=== PATIENT | male | born 1945 | race American Indian/Alaskan Native ===

== ENCOUNTER 2022-01-18 15:06 | Inpatient (IN) | payer MEDICARE ==
--- NOTE | 2022-01-18 15:45 | Cat Scan Report ---
CT HEAD WITHOUT CONTRAST INDICATION / CLINICAL INFORMATION: CODE STROKE LNW 1430, AMS, [id number]. TECHNIQUE: All CT scans at this location are performed using CT dose reduction for ALARA by means of automated exposure control. COMPARISON: None available. FINDINGS: CEREBRAL/CEREBELLAR PARENCHYMA: Large chronic left cerebral hemisphere infarct with associated enceph alomalacia. Smaller chronic right posterior frontal and anterior parietal lobe infarcts. Bilateral ce rebral peduncle Wallerian degeneration. Small chronic left occipital lobe infarct. No evidence for an acute/subacute territorial infarct. Small chronic right cerebellar lacunar type infarct. Mild perive ntricular chronic microangiopathy. Mild generalized cerebral and cerebellar atrophy. HEMORRHAGE: No acute intra-axial hemorrhage or extra-axial fluid collection. MASS: No mass or mass effect. VENTRICULAR SYSTEM: Normal in size and morphology for the patient's age. ORBITS: Normal as visualized. SOFT TISSUES/SKULL: No scalp hematoma or skull fracture. PARANASAL SINUSES/MASTOID AIR CELLS: Left maxillary sinus mucous retention cyst. Torus palatinus. IMPRESSION: 1. No acute intracranial abnormality. 2. Multifocal chronic ischemic changes including a large chronic left MCA distribution infarct with a ssociated encephalomalacia, as detailed above. CODE STROKE Time of Communication (MAGISTRATE/CDT): 14:38 Licensed Practitioner Receiving Report: Dr. Solis Signer Name: Harry Mendez MD Signed: 01/18/2022 3:40 PM Workstation Name: [id number]
--- NOTE | 2022-01-18 16:11 | Cat Scan Report ---
CT angio neck INDICATION / CLINICAL INFORMATION: 76 years Male; CODE STROKE. LNW 1430 [facility] [id number] 100ML OF OMNIPAQUE 350 GIVEN. TECHNIQUE: Thin cut axial images obtained through the head during IV bolus contrast administration. S agittal, coronal, and 3 plane MIP reconstructions performed by the technologist. NASCET type criteria used evaluate stenoses. All CT scans at this location are performed using CT dose reduction for ALAR A by means of automated exposure control. COMPARISON: None available. FINDINGS: CAROTID ARTERIES: There is irregular atherosclerotic plaque involving proximal left ICA with approxim ately 20% stenosis by NASCET criteria. The more distal left cervical ICA is unremarkable. VERTEBRAL ARTERIES: There is also mild calcified plaque involving the proximal right ICA without sign ificant stenosis by NASCET criteria. ARCH: There is calcification at the origins of the vertebral arteries with mild to moderate stenosis on the right and mild stenosis on the left. There is no further significant narrowing involving cervi reggie vertebral arteries. ADDITIONAL FINDINGS: There is mild calcification involving aortic arch. There is no significant narro wing of the origins of the arch vessels. IMPRESSION: There is irregular atherosclerotic plaque involving proximal left ICA with mild, 20% stenosis by NASC ET criteria. There is mild plaque involving proximal right ICA without significant stenosis. There is moderate right and mild left narrowing of the origins of the vertebral arteries as described . Signer Name: Ever Yip MD Signed: 01/18/2022 4:07 PM Workstation Name: [id number]
--- NOTE | 2022-01-18 16:15 | XRay Report ---
CHEST 1 VIEW 01/18/2022 3:48 PM INDICATION / CLINICAL INFORMATION: cva. COMPARISON: None available. FINDINGS: SUPPORT DEVICES: None. HEART / MEDIASTINUM: There is borderline to mild cardiomegaly. The aorta is ectatic but well defined. LUNGS / PLEURA: No significant pulmonary or pleural abnormality. No pneumothorax. ADDITIONAL FINDINGS: No significant additional findings. IMPRESSION: 1. Cardiomegaly. Ectatic aorta. Lungs clear. Signer Name: Oneal Eller Jr, MD Signed: 01/18/2022 4:10 PM Workstation Name: [id number]
[2022-01-18] MEDS ORDERED: levETIRAcetam 1000 MG/NS 0.75% 1,000 MG/100 ML BAG IV ONE (16:35)
--- NOTE | 2022-01-18 16:43 | History and Physical Report ---
History of Present Illness Chief complaint: He cannot talk History of present illness: 76 YO Male with Vascular Dementia, Cerebral Atherosclerosis, CVA with Hemiparesis, Dysphagia presents to ED for evaluation. Patient is dysarthric and nonverbal at time of evaluation and is unable to write history. Patient here provided by daughter and was at bedside during exam and interview. As per family the patient was found to have new onset slurred speech and worsening right-sided weakness today around 1430 hrs. EMS was notified and upon arrival the patient was found to have a focal neurologic deficit. A code stroke was called and the patient was transported to [facility] for further care and evaluation of the aforementioned symptoms. The patient was seen and evaluated in the emergency department. Lab and imaging studies reviewed. Patient found to have clinical symptoms consistent with CVA complicated by new onset seizure activity which was witnessed in the emergency department. CT scan of the brain revealed large left MCA stroke. Patient admitted to medical floor and initiated on CVA protocol as well as antiepileptic therapy. No further history is obtainable. Patient family denies fever, chills, chest pain, palpitation, productive cough, skin rash and recent contact, or known exposure to COVID-19. No prior admission for review. No medication listed at time of admission for reconciliation. Adva nced care planning conducted in ED. Past History Past Medical History: stroke, other (See HPI) Past Surgical History: Other (PEG tube placement) Social history: , lives with family Family history: hypertension Medications and Allergies Allergies Allergy/AdvReac Type Severity Reaction Status Date / Time No Known Allergies Allergy Verified 01/18/22 16:45 Active Meds: Active Medications Levetiracetam (Keppra 1,000 Mg/Ns 0.75% 100ml) 1,000 mg in 100 mls @ 400 mls/hr IV ONCE ONE Stop: 01/18/22 16:49 Review of Systems ROS unobtainable: due to mental status Exam - Constitutional Vitals: Temp Pulse Resp BP Pulse Ox 98.2 F 88 18 122/78 95 01/18/22 15:06 01/18/22 15:06 01/18/22 15:06 01/18/22 15:06 01/18/22 15:06 General appearance: Present: mild distress - EENT Eyes: Present: PERRL ENT: hearing intact, clear oral mucosa - Neck Neck: Present: supple, normal ROM - Respiratory Respiratory effort: normal Respiratory: bilateral: diminished - Cardiovascular Heart Sounds: Present: S1 & S2. Absent: rub, click - Extremities Extremities: pulses symmetrical, No edema Peripheral Pulses: within normal limits - Abdominal General gastrointestinal: Present: soft, non-tender, non-distended, normal bowel sounds Male genitourinary: Present: normal - Integumentary Integumentary: Present: clear, dry - Musculoskeletal Musculoskeletal: right sided weakness - Psychiatric Psychiatric: no appropriate mood/affect, no intact judgment & insight, no memory intact - Neurologic Neurologic: no CNII-XII intact, focal deficits, no moves all extremities, no gait normal Results - Labs CBC & Chem 7: 01/18/22 16:23 01/18/22 16:23 Assessment and Plan - Patient Problems (1) CVA (cerebral vascular accident) Status: Acute Qualifiers: Laterality of affected vessel: left Plan to address problem: CT scan head, neuro check, seizure precaution, aspiration precaution, fall precautions, physical therapy consulted, Occupational Therapy consulted, speech therapy consult, lipid panel, statin therapy, antiplatelet therapy, carotid Doppler, echocardiogram (2) Hemiparesis of right dominant side due to cerebral infarction Status: Acute Plan to address problem: Physical therapy consulted. (3) Dysarthria due to acute cerebellar cerebrovascular accident (CVA) Status: Acute Plan to address problem: Speech therapy consulted (4) Dysphagia as late effect of stroke Status: Acute Plan to address problem: Speech therapy consulted, patient has PEG tube in place. (5) Seizure disorder Status: Acute Plan to address problem: Antiepileptic therapy initiated in the emergency department, seizure pre cautions. (6) Vascular dementia Status: Acute Qualifiers: Dementia behavioral disturbance: without behavioral disturbance Qualified Code(s): F01.50 - Vascular dementia without behavioral disturbance Plan to address problem: Verbal prompt, verbal redirection, benzodiazepine therapy as clinically indicated. (7) Cerebral atherosclerosis Status: Acute (8) DVT prophylaxis Status: Acute Plan to address problem: SCDs bilateral lower extremities while in bed (9) Advance care planning Status: Acute Plan to address problem: Disease education done, care plan discussed, diagnosis discussed, prognosis discussed, patient is full code, patient family acknowledged understanding and agreement with care plan, +30 minutes. (10) Preventative health care Status: Acute Plan to address problem: Patient family counseled regarding home safety, risk factor reduction, outpatient follow-up with primary care physician for all age and risk factor appropriate screening test. +30 minutes.
[2022-01-18] MEDS ORDERED: oxyCODONE /ACETAMINOPHEN 5-325MG TAB PO PRN (16:44)
[2022-01-18] MEDS ORDERED: ACETAMINOPHEN 325 MG TAB PO PRN (16:44)
[2022-01-18] MEDS ORDERED: ONDANSETRON 4 MG/2 ML INJ IV PRN (16:44)
[2022-01-18] MEDS ORDERED: PROMETHAZINE 25 MG RECT SUPP PR PRN (16:44)
[2022-01-18] MEDS ORDERED: MAGNESIUM HYDROXIDE (MOM) ORAL LIQD UDC PO PRN (16:44)
[2022-01-18] MEDS ORDERED: MORPHINE 4 MG/1 ML INJ IV PRN (16:44)
[2022-01-18] MEDS ORDERED: METOCLOPRAMIDE 10 MG TAB PO PRN (16:44)
[2022-01-18] MEDS ORDERED: ALBUTEROL 2.5 MG/3 ML NEBU IH PRN (16:44)
--- NOTE | 2022-01-18 16:49 | Cat Scan Report ---
CT angio head INDICATION / CLINICAL INFORMATION: 76 years Male; CODE STROKE. LNW 1430 [facility] [id number] 100ML OF OMNIPAQUE 350 GIVEN. TECHNIQUE: Thin cut axial images obtained through the head during IV bolus contrast administration. S agittal, coronal, and 3 plane MIP reconstructions performed by the technologist. NASCET type criteria used evaluate stenoses. Automated exposure control utilized for radiation reduction purposes. . COMPARISON: None available. FINDINGS: INTERNAL CAROTID ARTERIES: No significant narrowing appreciated. Atherosclerotic disease noted. VERTEBROBASILAR SYSTEM: Focal area of moderate narrowing is seen in the distal right vertebral artery . Areas of minimal narrowing are seen in the proximal and mid basilar artery. DISTAL BRANCHES: Distal branches of the anterior, middle, and posterior cerebral arteries are fairly symmetric in appearance and number. Focal areas of akhv-qj-jmszxexx narrowing are seen in the anterior cerebral artery branches where the vessels pass around the genu of the corpus callosum. Some of these areas have the appearance of vasc ulitis/arteritis, as there are areas of mild narrowing and dilatation present. Areas of mild narrowing dilatation are seen in the MCA branches as well. Focal areas of llch-fo-ncyvqzak narrowing are seen in the P2 regions of both posterior cerebral arter ies. ANEURYSM: None identified. ADDITIONAL FINDINGS: Remainder of the surrounding soft tissues are grossly normal. IMPRESSION: 1. No signs of large vessel occlusion. Areas of narrowing as described above. Vasculitis/arteritis mi ght be a consideration, although certainly there is evidence of atherosclerotic disease.. Signer Name: Braulio aZman MD, III Signed: 01/18/2022 4:45 PM Workstation Name: [id number]
[2022-01-18 16:51] LABS: Alanine Aminotransferase 33 units/L (7-56); Albumin 4.5 g/dL (3.9-5); Blood Urea Nitrogen 15 mg/dL (9-20); Calcium 9.8 mg/dL (8.4-10.2); Hemolysis Index 23
--- NOTE | 2022-01-18 17:00 | Emergency Department Report ---
ED General Adult HPI - General Chief complaint: Neuro Symptoms/Deficit Stated complaint: AMS/STROKE Time Seen by Provider: 01/18/22 15:10 Source: EMS Mode of arrival: Stretcher Limitations: Altered Mental Status, Physical Limitation - History of Present Illness Initial comments: Patient presents to the emergency department via EMS for concern of a stroke. Patient has a recent history of CVA in June of this year that resulted in right-sided deficits as well as placement of a feeding tube. Per EMS the call was made by the patient's for concern of new onset slurred speech and increased weakness on the left side. Patient is nonverbal thus unable to help with exam. Symptoms started a proximal around 2:15 PM. Per EMS the patient had a new onset seizure as well at home thus patient was not a tPA candidate -: Sudden Severity scale (0 -10): 0 Consistency: constant Improves with: none Worsens with: none Associated Symptoms: denies other symptoms Treatments Prior to Arrival: none - Related Data Allergies Allergy/AdvReac Type Severity Reaction Status Date / Time No Known Allergies Allergy Verified 01/18/22 16:45 ED Review of Systems ROS: Stated complaint: AMS/STROKE Other details as noted in HPI Comment: Unobtainable due to pts medical conditions ED Physical Exam - General Limitations: Altered Mental Status, Physical Limitation General appearance: alert, in no apparent distress - Head Head exam: Present: atraumatic, normocephalic - Eye Eye exam: Present: normal appearance, PERRL, EOMI - ENT ENT exam: Present: mucous membranes moist - Neck Neck exam: Present: normal inspection - Respiratory Respiratory exam: Present: normal lung sounds bilaterally. Absent: respiratory distress - Cardiovascular Cardiovascular Exam: Present: regular rate, normal rhythm. Absent: systolic murmur, diastolic murmur, rubs, gallop - GI/Abdominal GI/Abdominal exam: Present: soft, normal bowel sounds, other (PEG tube present). Absent: distended, tenderness - Rectal Rectal exam: Present: deferred - Extremities Exam Extremities exam: Present: normal inspection - Back Exam Back exam: Present: normal inspection - Neurological Exam Neurological exam: Present: alert, other (Patient has residual right-sided deficits from prior stroke. Patient on exam is not able to move left upper strongly against gravity.) - Psychiatric Psychiatric exam: Present: normal affect, normal mood - Skin Skin exam: Present: warm, dry, intact, normal color. Absent: rash ED Course Vital Signs 01/18/22 01/18/22 01/18/22 15:06 16:08 16:15 Temperature 98.2 F Pulse Rate 88 79 Respiratory 18 25 H Rate Blood Pressure Blood Pressure 122/78 [Left] O2 Sat by Pulse 95 95 96 Oximetry 01/18/22 01/18/22 01/18/22 16:31 16:45 17:00 Temperature Pulse Rate 78 76 82 Respiratory 27 H 23 17 Rate Blood Pressure Blood Pressure [Left] O2 Sat by Pulse 94 94 93 Oximetry 01/18/22 01/18/22 01/18/22 17:15 17:30 17:45 Temperature Pulse Rate 71 66 64 Respiratory 24 19 21 Rate Blood Pressure 138/81 142/79 Blood Pressure [Left] O2 Sat by Pulse 94 94 95 Oximetry 01/18/22 18:00 Temperature Pulse Rate 67 Respiratory 20 Rate Blood Pressure 143/88 Blood Pressure [Left] O2 Sat by Pulse 97 Oximetry ED Medical Decision Making - Lab Data Result diagrams: 01/18/22 16:23 01/18/22 16:23 Lab Results 01/18/22 01/18/22 01/18/22 Range/Units 16:23 16:23 16:23 WBC 5.6 (4.5-11.0) K/mm3 RBC 4.21 (3.65-5.03) M/mm3 Hgb 12.6 (11.8-15.2) gm/dl Hct 37.3 (35.5-45.6) % MCV 89 (84-94) fl MCH 30 (28-32) pg MCHC 34 (32-34) % RDW 14.9 (13.2-15.2) % Plt Count 263 (140-440) K/mm3 PT 15.1 H (12.2-14.9) Sec. INR 1.04 (0.87-1.13) APTT 31.9 (24.2-36.6) Sec. Thrombin Time 18.3 (15.1-19.6) Sec. Sodium (137-145) mmol/L Potassium (3.6-5.0) mmol/L Chloride (98-107) mmol/L Carbon Dioxide (22-30) mmol/L Anion Gap mmol/L BUN (9-20) mg/dL Creatinine (0.8-1.3) mg/dL Estimated GFR ml/min BUN/Creatinine Ratio % Glucose (75-100) mg/dL Calcium (8.4-10.2) mg/dL Total Bilirubin (0.1-1.2) mg/dL AST (5-40) units/L ALT (7-56) units/L Alkaline Phosphatase (35-129) units/L Total Creatine Kinase 141 (55-170) units/L CK-MB (CK-2) 3.5 (0.0-4.0) ng/mL CK-MB (CK-2) Rel Index 2.4 (0-4) Troponin T 0.085 H (0.00-0.029) ng/mL Total Protein (6.3-8.2) g/dL Albumin (3.9-5) g/dL Albumin/Globulin Ratio % Triglycerides 98 (2-149) mg/dL Cholesterol 121 (50-199) mg/dL LDL Cholesterol Direct 57 (50-130) mg/dL HDL Cholesterol 50 (40-59) mg/dL Cholesterol/HDL Ratio 2.42 % // Range/Units 16:23 WBC (4.5-11.0) K/mm3 RBC (3.65-5.03) M/mm3 Hgb (11.8-15.2) gm/dl Hct (35.5-45.6) % MCV (84-94) fl MCH (28-32) pg MCHC (32-34) % RDW (13.2-15.2) % Plt Count (140-440) K/mm3 PT (12.2-14.9) Sec. INR (0.87-1.13) APTT (24.2-36.6) Sec. Thrombin Time (15.1-19.6) Sec. Sodium 139 (137-145) mmol/L Potassium 3.6 (3.6-5.0) mmol/L Chloride 100.9 (98-107) mmol/L Carbon Dioxide 27 (22-30) mmol/L Anion Gap 15 mmol/L BUN 15 (9-20) mg/dL Creatinine 0.6 L (0.8-1.3) mg/dL Estimated GFR > 60 ml/min BUN/Creatinine Ratio 25 % Glucose 135 H (75-100) mg/dL Calcium 9.8 (8.4-10.2) mg/dL Total Bilirubin 0.50 (0.1-1.2) mg/dL AST 27 (5-40) units/L ALT 33 (7-56) units/L Alkaline Phosphatase 171 H (35-129) units/L Total Creatine Kinase (55-170) units/L CK-MB (CK-2) (0.0-4.0) ng/mL CK-MB (CK-2) Rel Index (0-4) Troponin T (0.00-0.029) ng/mL Total Protein 8.3 H (6.3-8.2) g/dL Albumin 4.5 (3.9-5) g/dL Albumin/Globulin Ratio 1.2 % Triglycerides (2-149) mg/dL Cholesterol (50-199) mg/dL LDL Cholesterol Direct (50-130) mg/dL HDL Cholesterol (40-59) mg/dL Cholesterol/HDL Ratio % - EKG Data -: EKG Interpreted by Or EKG shows normal: sinus rhythm Rate: normal - EKG Data 01/18/22 18:30 With PVCs - Radiology Data Radiology results: report reviewed - Medical Decision Making Detailed discussions were had with the patient's and daughter Patient had seizure-like activity in the ED and thus was started on Keppra. Critical care attestation.: If time is entered above; I have spent that time in minutes in the direct care of this critically ill patient, excluding procedure time. ED Disposition Clinical Impression: Seizure-like activity CVA (cerebral vascular accident) Qualifiers: Laterality of affected vessel: left Disposition: 09 ADMITTED INPATIENT Is pt being admited?: Yes Does the pt Need Aspirin: No Condition: Stable
[2022-01-18 17:01] LABS: Creatine Kinase MB 3.5 ng/mL (0.0-4.0)
[2022-01-18 17:17] LABS: BUN/Creatinine Ratio 25
[2022-01-18 17:20] LABS: Hematocrit 37.3 % (35.5-45.6); Hemoglobin 12.6 gm/dl (11.8-15.2); Mean Corpuscular HGB Conc 34 % (32-34); Mean Corpuscular Volume 89 fl (84-94); Platelet Count 263 K/mm3 (140-440); Red Blood Count 4.21 M/mm3 (3.65-5.03); Red Cell Distribution Width 14.9 % (13.2-15.2)
[2022-01-18 17:40] LABS: Chol/HDL Ratio 2.42 %
[2022-01-18 17:57] LABS: INR 1.04 (0.87-1.13)
[2022-01-18 17:59] LABS: Partial Thromboplastin Time 31.9 Sec. (24.2-36.6); Thrombin Time 18.3 Sec. (15.1-19.6)
[2022-01-18 18:34] LABS: Basophils % (Manual) 0 % (0.0-1.8); Eosinophils % (Manual) 0 % (0.0-4.3); Platelet Estimate Consistent w Auto; Total Cells Counted 100
[2022-01-18] MEDS: levETIRAcetam 500 MG/5 ML ORAL LIQD PO SCH (22:19)
[2022-01-19 06:18] LABS: Color,Urine Yellow (Yellow)
[2022-01-19 06:19] LABS: Amphetamine Screen,Urine Negative; Benzodiazepines Screen,Urine Negative; Bilirubin,Urine Negative (Negative); Blood,Urine Negative (Negative); Cannabinoid Screen,Urine Negative; Cocaine Screen,Urine Negative; Methadone Screen,Urine Negative; Opiate Screen,Urine Negative; Urobilinogen,Urine 0.2 mg/dL (<2.0)
[2022-01-19] MEDS: ASPIRIN 325 MG TAB PO SCH (09:40)
[2022-01-19] MEDS: levETIRAcetam 500 MG/5 ML ORAL LIQD PO SCH ×2 (09:40→21:51)
--- NOTE | 2022-01-19 12:47 | Discharge Summary ---
Providers - Providers Date of Admission: 01/18/22 16:44 Date of discharge: 01/19/22 Attending physician: ADRI AUGUSTIN 01/18/22 16:44 Consult to Case Management [CONS] Routine Services Needed at Discharge: Other Notified:: in AM Additional Physician Instructions: Please send out for SNF Placement Occupational Therapy Evaluate and Treat [CONS] Routine Comment: Reason For Exam: Neuro deficits Physical Therapy Evaluation and Treat [CONS] Routine Comment: Reason For Exam: Neuro deficits 01/18/22 16:46 Speech Therapy Evaluation and Treat [CONS] Routine Reason For Exam: swallow eval 01/19/22 12:46 Consult to Physician [CONS] Routine Reason For Exam: acute CVA Consulting Provider: LOREN FISHER Physician Instructions: Comment: Primary care physician: GELACIO JOYA Hospitalization Condition: Stable Exam - Constitutional Vitals: Temp Pulse Resp BP Pulse Ox 98.4 F 80 17 111/71 98 01/19/22 04:41 01/19/22 04:41 01/19/22 04:41 01/19/22 04:41 01/19/22 08:57 Plan Follow up with: GELACIO JOAY MD [Primary Care Provider] - 7 Days
[2022-01-19] MEDS ORDERED: NON-FORMULARY EACH (Insulin Detemir [Levemir Flextouch] 100 UNIT/ML Insuln.Pen) SQ SCH (18:00)
[2022-01-19] MEDS ORDERED: NON-FORMULARY EACH (Apixaban 5 MG Tablet) PO SCH (18:00)
[2022-01-19] MEDS ORDERED: SIMPLE SYRUP 15 ML FEEDTUBE PRN ×2 (18:05)
[2022-01-19] MEDS ORDERED: LIPASE 10,500/PROTEASE 25,000/AMYLASE 43,750 (UNITS) DR CAP FEEDTUBE PRN (18:05)
[2022-01-19] MEDS ORDERED: SODIUM BICARBONATE 325 MG TAB FEEDTUBE PRN (18:05)
[2022-01-19] MEDS: carvediloL 12.5 MG TAB PO SCH (21:51)
[2022-01-19] MEDS ORDERED: NON-FORMULARY EACH (Atorvastatin [Lipitor] 80 MG Tablet) PO SCH (22:00)
[2022-01-20] MEDS: INSULIN GLARGINE 100 UNITS/ML SUB-Q SCH (08:00)
[2022-01-20] MEDS: levETIRAcetam 500 MG/5 ML ORAL LIQD PO SCH ×2 (09:25→22:16)
[2022-01-20] MEDS: carvediloL 12.5 MG TAB PO SCH ×2 (09:25→22:16)
[2022-01-20] MEDS: ASPIRIN 325 MG TAB PO SCH (09:26)
[2022-01-20] MEDS ORDERED: APIXABAN 5 MG TAB PO SCH (10:00)
[2022-01-20] MEDS ORDERED: amLODIPine 10 MG TAB PO SCH (10:00)
--- NOTE | 2022-01-20 11:15 | Progress Note ---
Assessment and Plan This is a 76-year-old male with a history of recent CVA in June of this year that resulted in right-sided deficits as well as placement of a feeding tube, minimally ambulatory at home, hypertension and diabetes mellitus type 2 presented to ER by EMS on 01/18/22 as patient's called for concern of new onset slurred speech and increased weakness on the left side. Symptoms started a proximal around 2:15 PM. Per EMS the patient also had a new onset seizure at home thus patient was not a tPA candidate. Patient was initiated on Keppra and admitted for further evaluation and management. 01/19: Patient appears to be in postictal state today. Continue Keppra twice daily. Ordered for neuro eval. CT head does not show any acute stroke, 2D echo showed preserved EF. Pending carotid Doppler study. Assessment and plan: --New onset seizure Continue Keppra, ordered EEG and MRI of the brain Consulted neurology, will follow recommendation --Possible acute CVA (cerebral vascular accident) --History of old CVA with right-sided deficit CT head w/o contrast: 1. No acute intracranial abnormality. 2. Multifocal chronic ischemic changes including a large chronic left MCA distribution infarct with associated encephalomalacia. CTA head/neck: There is irregular atherosclerotic plaque involving proximal left ICA with mild, 20% stenosis by NASCET criteria. There is mild plaque involving proximal right ICA without significant stenosis. There is moderate right and mild left narrowing of the origins of the vertebral arteries as described. Echocardiogram: Preserved EF Continue stroke protocol with neuro check, seizure precaution, aspiration precaution, fall precautions, physical therapy consulted, Occupational Therapy consulted, s Neurology and speech therapy consult placed, Ordered lipid panel, Continue statin therapy, antiplatelet therapy, Pending carotid Doppler, -- Hemiparesis of right dominant side due to old cerebral infarction Physical therapy consulted. -- Dysarthria due to acute cerebellar cerebrovascular accident (CVA) Speech therapy consulted -- Dysphagia as late effect of stroke Speech therapy consulted, patient has PEG tube in place, ordered diet -- Vascular dementia, suspected Verbal prompt, verbal redirection, benzodiazepine therapy as clinically indicated. -- DVT prophylaxis SCDs bilateral lower extremities while in bed -- Advance care planning Disease education done, care plan discussed, diagnosis discussed, prognosis discussed, patient is full code, patient family acknowledged understanding and agreement with care plan, +30 minutes. -- Preventative health care Status: Acute Plan to address problem: Patient family counseled regarding home safety, risk factor reduction, outpatient follow-up with primary care physician for all age and risk factor appropriate screening test. +30 minutes. Subjective Date of service: 01/19/22 Interval history: Patient seen and examined. Medical records and medication list reviewed. No acute event overnight noted by the RN. No further report of having seizure Patient currently appears to be in deep sleep Discussed plan of care at bedside with patient's . Objective - Exam Narrative Exam: GENERAL: well-developed and well-nourished male resting on bed appeared to be in no discomfort. HEENT: Normocephalic. Atraumatic. No conjunctival congestion or icterus. Patient has moist mucous membranes. NECK: Supple. Trachea midline. CHEST/LUNGS: Clear to auscultated bilaterally, breathing nonlabored. No wheezes crackles or rhonchi. HEART/CARDIOVASCULAR: Regular in rate and rhythm. S1 and S2 positive. ABDOMEN: Abdomen is soft, nontender. Patient has normal bowel sounds. SKIN: There is no rash. Warm and dry. NEURO: Patient currently sleeping, documented right-sided hemiparesis MUSCULOSKELETAL: No joint effusion or tenderness. EXTRIMITY: No edema, no cyanosis or clubbing. PSYCH: Unable to assess - Constitutional Vitals: Vital Signs - 12hr 01/20/22 01/20/22 00:00 09:25 Pulse Rate 80 Respiratory 16 Rate Blood Pressure 130/80 O2 Sat by Pulse 97 Oximetry - Labs CBC & Chem 7: 01/18/22 16:23 01/18/22 16:23 Labs: Abnormal lab results 01/19/22 01/19/22 01/19/22 Range/Units 12:30 16:41 22:01 POC Glucose 125 H 119 H 169 H (70-105) mg/dL 01/20/22 Range/Units 06:48 POC Glucose 143 H (70-105) mg/dL HEART Score - HEART Score Troponin: Troponin T 0.085 ng/mL (0.00-0.029) H 01/18/22 16:23
--- NOTE | 2022-01-20 12:26 | Progress Note ---
Assessment and Plan This is a 76-year-old male with a history of recent CVA in June of this year that resulted in right-sided deficits as well as placement of a feeding tube, minimally ambulatory at home, hypertension and diabetes mellitus type 2 presented to ER by EMS on 01/18/22 as patient's called for concern of new onset slurred speech and increased weakness on the left side. Symptoms started a proximal around 2:15 PM. Per EMS the patient also had a new onset seizure at home thus patient was not a tPA candidate. Patient was initiated on Keppra and admitted for further evaluation and management. 01/19: Patient appears to be in postictal state today. Continue Keppra twice daily. Ordered for neuro eval. CT head does not show any acute stroke, 2D echo showed preserved EF. Pending carotid Doppler study. 01/20: patient more up and alert today, cont keppra, pending speech eval - cont Tf for now, pending neuro recommendation. possible dc in the am if clears by neuro. Assessment and plan: --New onset seizure -- Postictal state, POA, resolved Continue Keppra, ordered EEG and MRI of the brain Consulted neurology, will follow recommendation --Possible acute CVA (cerebral vascular accident) --History of old CVA with right-sided deficit CT head w/o contrast: 1. No acute intracranial abnormality. 2. Multifocal chronic ischemic changes including a large chronic left MCA distribution infarct with associated encephalomalacia. CTA head/neck: There is irregular atherosclerotic plaque involving proximal left ICA with mild, 20% stenosis by NASCET criteria. There is mild plaque involving proximal right ICA without significant stenosis. There is moderate right and mild left narrowing of the origins of the vertebral arteries as described. Echocardiogram: Preserved EF Continue stroke protocol with neuro check, seizure precaution, aspiration precaution, fall precautions, physical therapy consulted, Occupational Therapy consulted, s Neurology and speech therapy consult placed, Ordered lipid panel, Continue statin therapy, antiplatelet therapy, Pending carotid Doppler, -- Hemiparesis of right dominant side due to old cerebral infarction Physical therapy consulted. -- Dysarthria due to acute cerebellar cerebrovascular accident (CVA) Speech therapy consulted -- Dysphagia as late effect of stroke Speech therapy consulted, patient has PEG tube in place, ordered diet -- Vascular dementia, suspected Verbal prompt, verbal redirection, benzodiazepine therapy as clinically indicated. -- DVT prophylaxis SCDs bilateral lower extremities while in bed -- Advance care planning Disease education done, care plan discussed, diagnosis discussed, prognosis discussed, patient is full code, patient family acknowledged understanding and agreement with care plan, +30 minutes. -- Preventative health care Status: Acute Plan to address problem: Patient family counseled regarding home safety, risk factor reduction, outpatient follow-up with primary care physician for all age and risk factor appropriate screening test. +30 minutes. Subjective Date of service: 01/20/22 Interval history: Patient seen and examined. Medical records and medication list reviewed. No acute event overnight noted by the RN. No further report of having seizure Patient more alert and awake today Discussed plan of care at bedside with patient's RN. Objective - Exam Narrative Exam: GENERAL: well-developed and well-nourished male resting on bed appeared to be in no discomfort. HEENT: Normocephalic. Atraumatic. No conjunctival congestion or icterus. Patient has moist mucous membranes. NECK: Supple. Trachea midline. CHEST/LUNGS: Clear to auscultated bilaterally, breathing nonlabored. No wheezes crackles or rhonchi. HEART/CARDIOVASCULAR: Regular in rate and rhythm. S1 and S2 positive. ABDOMEN: Abdomen is soft, nontender. Patient has normal bowel sounds. SKIN: There is no rash. Warm and dry. NEURO: Follows command, nonverbal, right-sided hemiparesis MUSCULOSKELETAL: No joint effusion or tenderness. EXTRIMITY: No edema, no cyanosis or clubbing. PSYCH: Unable to assess as patient nonverbal but cooperative - Constitutional Vitals: Vital Signs - 12hr 01/20/22 09:25 Pulse Rate 80 Blood Pressure 130/80 - Labs CBC & Chem 7: 01/18/22 16:23 01/18/22 16:23 Labs: Abnormal lab results 01/19/22 01/19/22 01/19/22 Range/Units 12:30 16:41 22:01 POC Glucose 125 H 119 H 169 H (70-105) mg/dL 01/20/22 01/20/22 Range/Units 06:48 11:23 POC Glucose 143 H 138 H (70-105) mg/dL HEART Score - HEART Score Troponin: Troponin T 0.085 ng/mL (0.00-0.029) H 01/18/22 16:23
--- NOTE | 2022-01-21 08:34 | Vascular Lab Report ---
DUPLEX DOPPLER ULTRASOUND CAROTID, BILATERAL INDICATION / CLINICAL INFORMATION: stroke. COMPARISON: None available. FINDINGS: RIGHT CAROTID: Mild plaque - PLAQUE ESTIMATE (%): < 50% - CCA velocity: 64 cm/sec. - ICA peak systolic velocity: 48 cm/sec. - ICA/CCA PSV Ratio: 0.8 Right Vertebral Artery: Antegrade flow. LEFT CAROTID: Mild plaque - PLAQUE ESTIMATE: < 50% - CCA velocity: 55 cm/sec. - ICA peak systolic velocity: 38 cm/sec. - ICA/CCA PSV Ratio: 0.8 Left Vertebral Artery: Antegrade flow. IMPRESSION: 1. Right Internal Carotid Artery: Less than 50% diameter stenosis. 2. Left Internal Carotid Artery: Less than 50% diameter stenosis. Velocity criteria are extrapolated from diameter data as defined by the Society of Radiologists in Ul trasound Consensus Conference, Radiology 2003; 229;340-346. NO STENOSIS (NORMAL) * Plaque = none; ICA PSV < 125 cm/sec; ICA/CCA PSV Ratio < 2.0 <50% STENOSIS * Plaque < 50%; ICA PSV < 125 cm/sec; ICA/CCA PSV Ratio < 2.0 50-69% STENOSIS * Plaque > 50%; ICA PSV = 125-230 cm/sec; ICA/CCA PSV Ratio = 2.0-4.0 >70% BUT <100% STENOSIS * Plaque > 50%; ICA PSV > 230 cm/sec; ICA/CCA PSV Ratio > 4.0 NEAR OCCLUSION * Plaque = visible lumen; ICA PSV = high/low/none; ICA/CCA PSV Ratio = variable TOTAL OCCLUSION * Plaque = no lumen; ICA PSV = none; ICA/CCA PSV Ratio = N/A Signer Name: Nate Zamora MD Signed: 01/21/2022 8:30 AM Workstation Name: [id number]
--- NOTE | 2022-01-21 10:09 | Electrocardiograph Report ---
[facility] Test Date: 2022-01-18 Test Time: 17:17:48 Pat Name: JEMAL PARKER Department: Room: A369 1 Gender: M Nursing Scheduler: CARLY : 1945 Requested By: ZAY HCAN Order Number: [id number] Reading MD: Bryan Waite Measurements Intervals [place] Rate: 75 P: 55 NM: 183 QRS: 17 QRSD: 94 T: 81 QT: 402 QTc: 448 Interpretive Statements Sinus rhythm Ventricular premature complex No previous ECG available for comparison Electronically Signed On 01-21-2022 10:09:23 EDT by Bryan Waite
[2022-01-21] MEDS: ASPIRIN 325 MG TAB PO SCH (11:26)
[2022-01-21] MEDS: carvediloL 12.5 MG TAB PO SCH ×2 (11:26→22:37)
[2022-01-21] MEDS: levETIRAcetam 500 MG/5 ML ORAL LIQD PO SCH ×2 (11:26→22:38)
[2022-01-21] MEDS: APIXABAN 5 MG TAB PO SCH ×2 (11:27→22:37)
[2022-01-21] MEDS: INSULIN GLARGINE 100 UNITS/ML SUB-Q SCH (11:34)
--- NOTE | 2022-01-21 12:39 | Magnetic Resonance Report ---
MRI BRAIN WITHOUT CONTRAST INDICATION / CLINICAL INFORMATION: seizure, rt sided weakness . TECHNIQUE: Multiplanar, multisequence MR images of the brain were obtained. COMPARISON: Head CT on 01/18/2022 FINDINGS: BRAIN / INTRACRANIAL CONTENTS: No acute ischemia, acute hemorrhage, mass effect, midline shift, or hy drocephalus. Stable large chronic left MCA distribution infarct and additional several small cortica l infarcts in the right frontoparietal convexity. Several foci of chronic hemosiderin deposition in t he bilateral basal ganglia, cerebellum, and brainstem are likely secondary to chronic hypertension an d/or diabetes. CRANIOCERVICAL JUNCTION: No significant abnormality. VASCULAR FLOW-VOIDS: No significant abnormality. ORBITS: No significant abnormality of visualized orbits. SINUSES / MASTOIDS: Left maxillary sinus mucous retention cyst again seen. ADDITIONAL FINDINGS: None. IMPRESSION: 1. No acute findings. 2. Severe chronic ischemic changes as described. Signer Name: Sridhar Delacruz MD Signed: 01/21/2022 12:35 PM Workstation Name: [email or web address]
[2022-01-21] MEDS ORDERED: NON-FORMULARY EACH (Losartan [Cozaar] 100 MG Tablet) PO SCH (12:45)
[2022-01-21] MEDS ORDERED: NON-FORMULARY EACH (Hydralazine Hcl [Hydralazine Hcl] 50 MG Tablet) PO SCH (12:45)
[2022-01-21] MEDS ORDERED: hydrALAZINE 25 MG TAB PO SCH (13:30)
[2022-01-21] MEDS: LOSARTAN 50 MG TAB PO SCH (14:27)
--- NOTE | 2022-01-21 15:26 | Progress Note ---
Assessment and Plan This is a 76-year-old male with a history of recent CVA in June of this year that resulted in right-sided deficits as well as placement of a feeding tube, minimally ambulatory at home, hypertension and diabetes mellitus type 2 presented to ER by EMS on 01/18/22 as patient's called for concern of new onset slurred speech and increased weakness on the left side. Symptoms started a proximal around 2:15 PM. Per EMS the patient also had a new onset seizure at home thus patient was not a tPA candidate. Patient was initiated on Keppra and admitted for further evaluation and management. 01/19: Patient appears to be in postictal state today. Continue Keppra twice daily. Ordered for neuro eval. CT head does not show any acute stroke, 2D echo showed preserved EF. Pending carotid Doppler study. 01/20: patient more up and alert today, cont keppra, pending speech eval - cont Tf for now, pending neuro recommendation. possible dc in the am if clears by neuro. 01/21: MRI brain w/o any acute infract but has chronic left MCA infract and chronic vascular changes. EEG showed no epileptiform discharges. pending neuro eval. PT/OT recommended LINDA, speech eval pending Assessment and plan: --New onset seizure -- Postictal state, POA, resolved Continue Keppra, ordered EEG and MRI of the brain Consulted neurology, will follow recommendation --Possible acute CVA (cerebral vascular accident) -ruled out --History of old CVA with right-sided deficit and chronic vascular changes CT head w/o contrast: 1. No acute intracranial abnormality. 2. Multifocal chronic ischemic changes including a large chronic left MCA distribution infarct with associated encephalomalacia. CTA head/neck: There is irregular atherosclerotic plaque involving proximal left ICA with mild, 20% stenosis by NASCET criteria. There is mild plaque involving proximal right ICA without significant stenosis. There is moderate right and mild left narrowing of the origins of the vertebral arteries as described. Echocardiogram: Preserved EF Carotid doppler <50% stenosis b/l Continue stroke protocol with neuro check, seizure precaution, aspiration precaution, fall precautions, physical therapy consulted, Occupational Therapy consulted, s Neurology and speech therapy consult placed, Ordered lipid panel, Continue statin therapy, antiplatelet therapy, -- Hemiparesis of right dominant side due to old cerebral infarction Physical therapy consulted. -- Dysarthria due to acute cerebellar cerebrovascular accident (CVA) Speech therapy consulted -- Dysphagia as late effect of stroke Speech therapy consulted, patient has PEG tube in place, ordered diet -- Vascular dementia, suspected Verbal prompt, verbal redirection, benzodiazepine therapy as clinically indicated. -- DVT prophylaxis SCDs bilateral lower extremities while in bed -- Advance care planning Disease education done, care plan discussed, diagnosis discussed, prognosis discussed, patient is full code, patient family acknowledged understanding and agreement with care plan, +30 minutes. -- Preventative health care Status: Acute Plan to address problem: Patient family counseled regarding home safety, risk factor reduction, outpatient follow-up with primary care physician for all age and risk factor appropriate screening test. +30 minutes. Subjective Date of service: 01/21/22 Interval history: Patient seen and examined. Medical records and medication list reviewed. No acute event overnight noted by the RN. No further report of having seizure Patient more alert and awake today Discussed plan of care at bedside with patient's . PT recommended LINDA Objective - Exam Narrative Exam: GENERAL: well-developed and well-nourished male resting on bed appeared to be in no discomfort. HEENT: Normocephalic. Atraumatic. No conjunctival congestion or icterus. Patient has moist mucous membranes. NECK: Supple. Trachea midline. CHEST/LUNGS: Clear to auscultated bilaterally, breathing nonlabored. No wheezes crackles or rhonchi. HEART/CARDIOVASCULAR: Regular in rate and rhythm. S1 and S2 positive. ABDOMEN: Abdomen is soft, nontender. Patient has normal bowel sounds. SKIN: There is no rash. Warm and dry. NEURO: Follows command, nonverbal, right-sided hemiparesis MUSCULOSKELETAL: No joint effusion or tenderness. EXTRIMITY: No edema, no cyanosis or clubbing. PSYCH: Unable to assess as patient nonverbal but cooperative - Constitutional Vitals: Vital Signs - 12hr 01/21/22 01/21/22 01/21/22 09:02 11:42 14:27 Pulse Rate 55 L Respiratory 20 Rate Blood Pressure 184/98 184/98 O2 Sat by Pulse 100 97 Oximetry - Labs CBC & Chem 7: 01/18/22 16:23 01/18/22 16:23 Labs: Abnormal lab results 01/20/22 01/20/22 01/21/22 Range/Units 18:27 22:29 05:23 POC Glucose 122 H 135 H 127 H (70-105) mg/dL 01/21/22 Range/Units 11:31 POC Glucose 117 H (70-105) mg/dL HEART Score - HEART Score Troponin: Troponin T 0.085 ng/mL (0.00-0.029) H 01/18/22 16:23
--- NOTE | 2022-01-21 15:54 | Consultation ---
History of Present Illness Consult date: 01/21/22 Reason for Consult: CVA History of present illness: The patient is stable per , reports a seizure . The patient had left sided shaking . Past History Past Medical History: stroke, other (See HPI) Past Surgical History: Other (PEG tube placement) Social history: , lives with family Family history: hypertension Medications and Allergies Allergies Allergy/AdvReac Type Severity Reaction Status Date / Time No Known Allergies Allergy Verified 01/18/22 16:45 Home Medications Medication Instructions Recorded Confirmed Last Taken Type Apixaban [Eliquis] 5 mg PO DAILY 01/19/22 01/19/22 Unknown History Atorvastatin [Lipitor Tab] 80 mg PO QHS 01/19/22 01/19/22 Unknown History Furosemide [Lasix] 40 mg PO DAILY 01/19/22 01/19/22 Unknown History Hydralazine HCl 50 mg PO BID 01/19/22 01/19/22 Unknown History Insulin Aspart (Nf) [NovoLOG 100 See Protocol SUB-Q Q6HR 01/19/22 01/19/22 Unknown History UNITS/ML VIAL] Insulin Detemir [Levemir Flextouch] 100 unit SQ Q8AM 01/19/22 01/19/22 Unknown History Loratadine [Claritin] 10 mg PO DAILY 01/19/22 01/19/22 Unknown History Losartan [Cozaar] 100 mg PO QDAY 01/19/22 01/19/22 Unknown History Potassium Chloride [KCl] 10 meq PO DAILY 01/19/22 01/19/22 Unknown History Sennosides/Docusate [Senokot S] 1 each PO Q12HR 01/19/22 01/19/22 Unknown History amLODIPine [Norvasc] 10 mg PO DAILY 01/19/22 01/19/22 Unknown History carvediloL [Coreg] 25 mg PO BID 01/19/22 01/19/22 Unknown History Active Meds: Active Medications Acetaminophen (Acetaminophen 325 Mg Tab) 650 mg PO Q4H PRN PRN Reason: Pain, Mild (1-3) Last Admin: 01/18/22 22:21 Dose: 650 mg Albuterol (Albuterol 2.5 Mg/3 Ml Nebu) 2.5 mg IH Q3HRT PRN PRN Reason: Shortness Of Breath Lipase/Protease/Amylase (Lipase 10,500/Protease 25,000/Amylase 43,750 (Units) Dr Cook) 1 each FEEDTUBE PRN PRN PRN Reason: For Clogged Feeding Tube Apixaban (Apixaban 5 Mg Tab) 5 mg PO BID [facility] Last Admin: 01/21/22 11:27 Dose: 5 mg Aspirin (Aspirin 325 Mg Tab) 325 mg PO QDAY [facility] Last Admin: 01/21/22 11:26 Dose: 325 mg Atorvastatin Calcium (Atorvastatin 40 Mg Tab) 80 mg PO QHS [facility] Last Admin: 01/20/22 22:16 Dose: 80 mg Bisacodyl (Bisacodyl 10 Mg Rect Supp) 10 mg GA QDAY PRN PRN Reason: Constipation Carvedilol (Carvedilol 12.5 Mg Tab) 12.5 mg PO BID [facility] Last Admin: 01/21/22 11:26 Dose: 12.5 mg Hydralazine HCl (Hydralazine 25 Mg Tab) 50 mg PO Q8HR [facility] Insulin Glargine (Insulin Glargine 100 Units/Ml) 20 units SUB-Q 0800 [facility] Last Admin: 01/21/22 11:34 Dose: Not Given Levetiracetam (Levetiracetam 500 Mg/5 Ml Oral Liqd) 500 mg PO BID [facility] Last Admin: 01/21/22 11:26 Dose: 500 mg Losartan Potassium (Losartan 50 Mg Tab) 100 mg PO QDAY [facility] Last Admin: 01/21/22 14:27 Dose: 100 mg Magnesium Hydroxide (Magnesium Hydroxide (Mom) Oral Liqd Udc) 30 ml PO Q4H PRN PRN Reason: Constipation Metoclopramide HCl (Metoclopramide 10 Mg Tab) 10 mg PO Q6H PRN PRN Reason: Nausea And Vomiting Morphine Sulfate (Morphine 4 Mg/1 Ml Inj) 1 mg IV Q14H PRN PRN Reason: Pain , Severe (7-10) Ondansetron HCl (Ondansetron 4 Mg/2 Ml Inj) 4 mg IV Q8H PRN PRN Reason: Nausea And Vomiting Oxycodone/Acetaminophen (Oxycodone /Acetaminophen 5-325mg Tab) 1 tab PO Q16H PRN PRN Reason: Pain, Moderate (4-6) Promethazine HCl (Promethazine 25 Mg Rect Supp) 25 mg GA Q6H PRN PRN Reason: Nausea And Vomiting Simple Syrup (Simple Syrup 15 Ml) 15 ml FEEDTUBE PRN PRN PRN Reason: Hypoglycemia Simple Syrup (Simple Syrup 15 Ml) 30 ml FEEDTUBE PRN PRN PRN Reason: Hypoglycemia Sodium Bicarbonate (Sodium Bicarbonate 325 Mg Tab) 325 mg FEEDTUBE PRN PRN PRN Reason: For Clogged Feeding Tube Sodium Chloride (Sodium Chloride 0.9% 10 Ml Flush Syringe) 10 ml IV PRN PRN PRN Reason: LINE FLUSH Last Admin: 01/20/22 22:17 Dose: 10 ml Physical Examination - Vital Signs Vital Signs: Vital Signs Temp Pulse Resp BP Pulse Ox 98.2 F 88 18 122/78 95 01/18/22 15:06 01/18/22 15:06 01/18/22 15:06 01/18/22 15:06 01/18/22 15:06 - Physical Exam Narrative exam: The patient is alert , moves left upper and lower extremity .Old Right Hemipares is Results - Laboratory Findings CBC and BMP: 01/18/22 16:23 01/18/22 16:23 Abnormal Lab Findings: Abnormal Labs 01/18/22 01/18/22 01/18/22 15:11 16:23 16:23 Seg Neuts % (Manual) 78.0 H Lymphocytes # (Manual) 1.0 L PT 15.1 H Creatinine Glucose POC Glucose Alkaline Phosphatase Troponin T Total Protein Urine pH 8.0 H Ur Specific [place] 1.000 L 01/18/22 01/18/22 01/19/22 16:23 16:23 06:11 Seg Neuts % (Manual) Lymphocytes # (Manual) PT Creatinine 0.6 L Glucose 135 H POC Glucose 132 H Alkaline Phosphatase 171 H Troponin T 0.085 H Total Protein 8.3 H Urine pH Ur Specific [place] 01/19/22 01/19/22 01/19/22 12:30 16:41 22:01 Seg Neuts % (Manual) Lymphocytes # (Manual) PT Creatinine Glucose POC Glucose 125 H 119 H 169 H Alkaline Phosphatase Troponin T Total Protein Urine pH Ur Specific [place] 01/20/22 01/20/22 01/20/22 06:48 11:23 18:27 Seg Neuts % (Manual) Lymphocytes # (Manual) PT Creatinine Glucose POC Glucose 143 H 138 H 122 H Alkaline Phosphatase Troponin T Total Protein Urine pH Ur Specific [place] 01/20/22 01/21/22 01/21/22 22:29 05:23 11:31 Seg Neuts % (Manual) Lymphocytes # (Manual) PT Creatinine Glucose POC Glucose 135 H 127 H 117 H Alkaline Phosphatase Troponin T Total Protein Urine pH Ur Specific [place] Assessment and Plan 1. 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 2. MRI Brain - reviewed . Reviewed All Home Medications. Continue Keppra 500 mg 1 tab BID . Discussed with the patient about follow up . Call Back with Question. Dr. Thakkar
[2022-01-21] MEDS: hydrALAZINE 25 MG TAB PO SCH ×2 (16:23→22:38)
[2022-01-22 01:39] LABS: Blood Urea Nitrogen 16 mg/dL (9-20); Calcium 9.2 mg/dL (8.4-10.2); Hemolysis Index 2
[2022-01-22 02:37] LABS: BUN/Creatinine Ratio 32
[2022-01-22] MEDS: hydrALAZINE 25 MG TAB PO SCH ×2 (05:58→15:00)
[2022-01-22] MEDS: INSULIN GLARGINE 100 UNITS/ML SUB-Q SCH (08:15)
--- NOTE | 2022-01-22 09:14 | Progress Note ---
Assessment and Plan Assessment and plan: This is a 76-year-old male with a history of recent CVA in June of this year that resulted in right-sided deficits as well as placement of a feeding tube, minimally ambulatory at home, hypertension and diabetes mellitus type 2 presented to ER by EMS on 01/18/22 as patient's called for concern of new onset slurred speech and increased weakness on the left side. Symptoms started a proximal around 2:15 PM. Per EMS the patient also had a new onset seizure at home thus patient was not a tPA candidate. Patient was initiated on Keppra and admitted for further evaluation and management. 01/19: Patient appears to be in postictal state today. Continue Keppra twice daily. Ordered for neuro eval. CT head does not show any acute stroke, 2D echo showed preserved EF. Pending carotid Doppler study. 01/20: patient more up and alert today, cont keppra, pending speech eval - cont Tf for now, pending neuro recommendation. possible dc in the am if clears by neuro. 01/21: MRI brain w/o any acute infract but has chronic left MCA infract and chronic vascular changes. EEG showed no epileptiform discharges. pending neuro eval. PT/OT recommended LINDA, speech eval pending Assessment and plan: --New onset seizure -- Postictal state, POA, resolved Continue Keppra, ordered EEG and MRI of the brain Consulted neurology, will follow recommendation --Possible acute CVA (cerebral vascular accident) -ruled out --History of old CVA with right-sided deficit and chronic vascular changes CT head w/o contrast: 1. No acute intracranial abnormality. 2. Multifocal chronic ischemic changes including a large chronic left MCA distribution infarct with associated encephalomalacia. CTA head/neck: There is irregular atherosclerotic plaque involving proximal left ICA with mild, 20% stenosis by NASCET criteria. There is mild plaque involving proximal right ICA without significant stenosis. There is moderate right and mild left narrowing of the origins of the vertebral arteries as described. Echocardiogram: Preserved EF Carotid doppler <50% stenosis b/l Continue stroke protocol with neuro check, seizure precaution, aspiration precaution, fall precautions, physical therapy consulted, Occupational Therapy consulted, s Neurology and speech therapy consult placed, Ordered lipid panel, Continue statin therapy, antiplatelet therapy, -- Hemiparesis of right dominant side due to old cerebral infarction Physical therapy consulted. -- Dysarthria due to acute cerebellar cerebrovascular accident (CVA) Speech therapy consulted -- Dysphagia as late effect of stroke Speech therapy consulted, patient has PEG tube in place, ordered diet -- Vascular dementia, suspected Verbal prompt, verbal redirection, benzodiazepine therapy as clinically indicated. -- DVT prophylaxis SCDs bilateral lower extremities while in bed -- Advance care planning Disease education done, care plan discussed, diagnosis discussed, prognosis discussed, patient is full code, patient family acknowledged understanding and agreement with care plan, +30 minutes. -- Preventative health care Status: Acute Plan to address problem: Patient family counseled regarding home safety, risk factor reduction, outpatie nt follow-up with primary care physician for all age and risk factor appropriate screening test. +30 minutes. Hospitalist Physical - Constitutional Vitals: Temp Pulse Resp BP Pulse Ox 98.2 F 56 L 18 160/91 96 01/20/22 20:13 01/22/22 05:58 01/22/22 00:00 01/22/22 05:58 01/22/22 00:00 General appearance: Present: mild distress HEART Score - HEART Score Troponin: Troponin T 0.085 ng/mL (0.00-0.029) H 01/18/22 16:23 Results - Labs CBC & Chem 7: 01/18/22 16:23 01/22/22 00:52 Labs: Laboratory Last Values WBC 5.6 K/mm3 (4.5-11.0) 01/18/22 16:23 RBC 4.21 M/mm3 (3.65-5.03) 01/18/22 16:23 Hgb 12.6 gm/dl (11.8-15.2) 01/18/22 16:23 Hct 37.3 % (35.5-45.6) 01/18/22 16:23 MCV 89 fl (84-94) 01/18/22 16:23 MCH 30 pg (28-32) 01/18/22 16: MCHC 34 % (32-34) 01/18/22 16:23 RDW 14.9 % (13.2-15.2) 01/18/22 16:23 Plt Count 263 K/mm3 (140-440) 01/18/22 16:23 Add Manual Diff Complete 01/18/22 16:23 Total Counted 100 01/18/22 16:23 Seg Neuts % (Manual) 78.0 % (40.0-70.0) H 01/18/22 16:23 Band Neutrophils % 0 % 01/18/22 16:23 Lymphocytes % (Manual) 17.0 % (13.4-35.0) 01/18/22 16:23 Reactive Lymphs % (Man) 0 % 01/18/22 16:23 Monocytes % (Manual) 5.0 % (0.0-7.3) 01/18/22 16:23 Eosinophils % (Manual) 0 % (0.0-4.3) 01/18/22 16:23 Basophils % (Manual) 0 % (0.0-1.8) 01/18/22 16:23 Metamyelocytes % 0 % 01/18/22 16: Myelocytes % 0 % 01/18/22 16: Promyelocytes % 0 % 01/18/22 16:23 Blast Cells % 0 % 01/18/22 16: Nucleated RBC % Not Reportable 01/18/22 16:23 Seg Neutrophils # Man 4.4 K/mm3 (1.8-7.7) 01/18/22 16:23 Band Neutrophils # 0.0 K/mm3 01/18/22 16:23 Lymphocytes # (Manual) 1.0 K/mm3 (1.2-5.4) L 01/18/22 16:23 Abs React Lymphs (Man) 0.0 K/mm3 01/18/22 16:23 Monocytes # (Manual) 0.3 K/mm3 (0.0-0.8) 01/18/22 16:23 Eosinophils # (Manual) 0.0 K/mm3 (0.0-0.4) 01/18/22 16:23 Basophils # (Manual) 0.0 K/mm3 (0.0-0.1) 01/18/22 16:23 Metamyelocytes # 0.0 K/mm3 01/18/22 16:23 Myelocytes # 0.0 K/mm3 01/18/22 16:23 Promyelocytes # 0.0 K/mm3 01/18/22 16:23 Blast Cells # 0.0 K/mm3 01/18/22 16:23 WBC Morphology Not Reportable 01/18/22 16:23 Hypersegmented Neuts Not Reportable 01/18/22 16:23 Hyposegmented Neuts Not Reportable 01/18/22 16:23 Hypogranular Neuts Not Reportable 01/18/22 16:23 Smudge Cells Not Reportable 01/18/22 16:23 Toxic Granulation Not Reportable 01/18/22 16:23 Toxic Vacuolation Not Reportable 01/18/22 16:23 Dohle Bodies Not Reportable 01/18/22 16:23 Pelger-Huet Anomaly Not Reportable 01/18/22 16:23 Ron Rods Not Reportable 01/18/22 16:23 Platelet Estimate Consistent w auto 01/18/22 16:23 Clumped Platelets Not Reportable 01/18/22 16:23 Plt Clumps, EDTA Not Reportable 01/18/22 16:23 Large Platelets Not Reportable 01/18/22 16:23 Giant Platelets Not Reportable 01/18/22 16:23 Platelet Satelliting Not Reportable 01/18/22 16:23 Plt Morphology Comment Not Reportable 01/18/22 16:23 RBC Morphology Not Reportable 01/18/22 16:23 Dimorphic RBCs Not Reportable 01/18/22 16:23 Polychromasia Not Reportable 01/18/22 16:23 Hypochromasia Not Reportable 01/18/22 16:23 Poikilocytosis Not Reportable 01/18/22 16:23 Anisocytosis Not Reportable 01/18/22 16:23 Microcytosis Not Reportable 01/18/22 16:23 Macrocytosis Not Reportable 01/18/22 16:23 Spherocytes Not Reportable 01/18/22 16:23 Pappenheimer Bodies Not Reportable 01/18/22 16:23 Sickle Cells Not Reportable 01/18/22 16:23 Target Cells Not Reportable 01/18/22 16:23 Tear Drop Cells Not Reportable 01/18/22 16:23 Ovalocytes Not Reportable 01/18/22 16:23 Helmet Cells Not Reportable 01/18/22 16:23 [place] Bodies Not Reportable 01/18/22 16:23 [place] Rings Not Reportable 01/18/22 16:23 S[place]osh Cells Not Reportable 01/18/22 16:23 Bite Cells Not Reportable 01/18/22 16:23 Crenated Cell Not Reportable 01/18/22 16:23 Elliptocytes Not Reportable 01/18/22 16:23 Acanthocytes (Spur) Not Reportable 01/18/22 16:23 Rouleaux Not Reportable 01/18/22 16:23 Hemoglobin C Crystals Not Reportable 01/18/22 16:23 Schistocytes Not Reportable 01/18/22 16:23 Malaria parasites Not Reportable 01/18/22 16:23 [place] Bodies Not Reportable 01/18/22 16:23 Hem Pathologist Commnt No 01/18/22 16:23 PT 15.1 Sec. (12.2-14.9) H 01/18/22 16:23 INR 1.04 (0.87-1.13) 01/18/22 16:23 APTT 31.9 Sec. (24.2-36.6) 01/18/22 16:23 Thrombin Time 18.3 Sec. (15.1-19.6) 01/18/22 16:23 Sodium 139 mmol/L (137-145) 01/22/22 00:52 Potassium 3.4 mmol/L (3.6-5.0) L 01/22/22 00:52 Chloride 101.2 mmol/L (98-107) 01/22/22 00:52 Carbon Dioxide 29 mmol/L (22-30) 01/22/22 00:52 Anion Gap 12 mmol/L 01/22/22 00:52 BUN 16 mg/dL (9-20) 01/22/22 00:52 Creatinine 0.5 mg/dL (0.8-1.3) L 01/22/22 00:52 Estimated GFR > 60 ml/min 01/22/22 00:52 BUN/Creatinine Ratio 32 % 01/22/22 00:52 Glucose 122 mg/dL (75-100) H 01/22/22 00:52 POC Glucose 159 mg/dL (70-105) H 01/22/22 07:57 Calcium 9.2 mg/dL (8.4-10.2) 01/22/22 00:52 Total Bilirubin 0.50 mg/dL (0.1-1.2) 01/18/22 16:23 AST 27 units/L (5-40) 01/18/22 16:23 ALT 33 units/L (7-56) 01/18/22 16:23 Alkaline Phosphatase 171 units/L (35-129) H 01/18/22 16:23 Total Creatine Kinase 141 units/L (55-170) 01/18/22 16:23 CK-MB (CK-2) 3.5 ng/mL (0.0-4.0) 01/18/22 16:23 CK-MB (CK-2) Rel Index 2.4 (0-4) 01/18/22 16:23 Troponin T 0.085 ng/mL (0.00-0.029) H 01/18/22 16:23 Total Protein 8.3 g/dL (6.3-8.2) H 01/18/22 16:23 Albumin 4.5 g/dL (3.9-5) 01/18/22 16:23 Albumin/Globulin Ratio 1.2 % 01/18/22 16:23 Triglycerides 98 mg/dL (2-149) 01/18/22 16:23 Cholesterol 121 mg/dL (50-199) 01/18/22 16:23 LDL Cholesterol Direct 57 mg/dL (50-130) 01/18/22 16:23 HDL Cholesterol 50 mg/dL (40-59) 01/18/22 16:23 Cholesterol/HDL Ratio 2.42 % 01/18/22 16:23 Urine Color Yellow (Yellow) 01/18/22 15:11 Urine Turbidity Clear (Clear) 01/18/22 15:11 Urine pH 8.0 (5.0-7.0) H 01/18/22 15:11 Ur Specific [place] 1.000 (1.003-1.030) L 01/18/22 15:11 Urine Protein 30 mg/dl mg/dL (Negative) 01/18/22 15:11 Urine Glucose (UA) Negative mg/dL (Negative) 01/18/22 15:11 Urine Ketones Negative mg/dL (Negative) 01/18/22 15:11 Urine Blood Negative (Negative) 01/18/22 15:11 Urine Nitrite Negative (Negative) 01/18/22 15:11 Ur Reducing Substances Not Reportable 01/18/22 15:11 Urine Bilirubin Negative (Negative) 01/18/22 15:11 Urine Ictotest Not Reportable 01/18/22 15:11 Urine Urobilinogen 0.2 mg/dL (<2.0) 01/18/22 15:11 Ur Leukocyte Esterase Negative (Negative) 01/18/22 15:11 Urine WBC (Auto) 6.0 /HPF (0.0-6.0) 01/18/22 15:11 Urine RBC (Auto) 3.0 /HPF (0.0-6.0) 01/18/22 15:11 Urine Yeast (Budding) 2+ /HPF 01/18/22 15:11 Urine Opiates Screen Negative 01/18/22 15:11 Urine Methadone Screen Negative 01/18/22 15:11 Ur Barbiturates Screen Negative 01/18/22 15:11 Ur Phencyclidine Scrn Negative 01/18/22 15:11 Ur Amphetamines Screen Negative 01/18/22 15:11 U Benzodiazepines Scrn Negative 01/18/22 15:11 Urine Cocaine Screen Negative 01/18/22 15:11 U Marijuana (THC) Screen Negative 01/18/22 15:11 Drugs of Abuse Note Disclamer 01/18/22 15:11 Christianson/IV: Voiding Method Condom Catheter Active Medications - Current Medications Current Medications: Generic Name Dose Route Start Last Admin Trade Name Freq PRN Reason Stop Dose Admin Acetaminophen 650 mg 01/18/22 16:44 01/18/22 22:21 Acetaminophen 325 Mg Tab PO 650 mg Q4H PRN Administration Pain, Mild (1-3) Albuterol 2.5 mg 01/18/22 16:44 Albuterol 2.5 Mg/3 Ml Nebu IH Q3HRT PRN Shortness Of Breath Lipase/Protease/Amylase 1 each 01/19/22 18:05 Lipase 10,500/Protease 25,000/Amylase 43,750 (Units) Dr Cook FEEDTUBE PRN PRN For Clogged Feeding Tube Apixaban 5 mg 01/21/22 10:00 01/21/22 22:37 Apixaban 5 Mg Tab PO 5 mg BID COLBY Administration Aspirin 325 mg 01/19/22 10:00 01/21/22 11:26 Aspirin 325 Mg Tab PO 325 mg QDAY COLBY Administration Atorvastatin Calcium 80 mg 01/19/22 22:00 01/21/22 22:37 Atorvastatin 40 Mg Tab PO 80 mg QHS COLBY Administration Bisacodyl 10 mg 01/18/22 16:44 Bisacodyl 10 Mg Rect Supp [place] QDAY PRN Constipation Carvedilol 12.5 mg 01/19/22 22:00 01/21/22 22:37 Carvedilol 12.5 Mg Tab PO 12.5 mg BID COLBY Administration Hydralazine HCl 50 mg 01/21/22 16:00 01/22/22 05:58 Hydralazine 25 Mg Tab PO 50 mg Q8HR COLBY Administration Insulin Glargine 20 units 01/20/22 08:00 01/21/22 11:34 Insulin Glargine 100 Units/Ml SUB-Q Not Given 0800 [facility] Levetiracetam 500 mg 01/18/22 22:00 01/21/22 22:38 Levetiracetam 500 Mg/5 Ml Oral Liqd PO 500 mg BID [facility] Administration Losartan Potassium 100 mg 01/21/22 13:30 01/21/22 14:27 Losartan 50 Mg Tab PO 100 mg QDAY COLBY Administration Magnesium Hydroxide 30 ml 01/18/22 16:44 Magnesium Hydroxide (Mom) Oral Liqd Udc PO Q4H PRN Constipation Metoclopramide HCl 10 mg 01/18/22 16:44 Metoclopramide 10 Mg Tab PO Q6H PRN Nausea And Vomiting Morphine Sulfate 1 mg 01/18/22 16:44 Morphine 4 Mg/1 Ml Inj IV Q14H PRN Pain , Severe (7-10) Ondansetron HCl 4 mg 01/18/22 16:44 Ondansetron 4 Mg/2 Ml Inj IV Q8H PRN Nausea And Vomiting Oxycodone/Acetaminophen 1 tab 01/18/22 16:44 Oxycodone /Acetaminophen 5-325mg Tab PO Q16H PRN Pain, Moderate (4-6) Promethazine HCl 25 mg 01/18/22 16:44 Promethazine 25 Mg Rect Supp [place] Q6H PRN Nausea And Vomiting Simple Syrup 15 ml 01/19/22 18:05 Simple Syrup 15 Ml FEEDTUBE PRN PRN Hypoglycemia Simple Syrup 30 ml 01/19/22 18:05 Simple Syrup 15 Ml FEEDTUBE PRN PRN Hypoglycemia Sodium Bicarbonate 325 mg 01/19/22 18:05 Sodium Bicarbonate 325 Mg Tab FEEDTUBE PRN PRN For Clogged Feeding Tube Sodium Chloride 10 ml 01/18/22 16:44 01/20/22 22:17 Sodium Chloride 0.9% 10 Ml Flush Syringe IV 10 ml PRN PRN Administration LINE FLUSH Nutrition/Malnutrition Assess - Dietary Evaluation Nutrition/Malnutrition Findings: Nutrition Notes Start: 01/19/22 10:34 Freq: Status: Active Protocol: Document 01/20/22 12:27 TW (Rec: 01/20/22 12:30 TW [id number]) Nutrition Notes Need for Assessment generated from: MD Order Initial or Follow up Brief Note Current Diet Cardiac/ TF Diet Subjective/Other Information RD consulted for TF. Nurse reported pt will be NPO and receive TF only. Nutrition Intervention Follow-Up By: 01/23/22 Additional Comments F/U for stable TF
[2022-01-22] MEDS: APIXABAN 5 MG TAB PO SCH (11:10)
[2022-01-22] MEDS: LOSARTAN 50 MG TAB PO SCH (11:11)
[2022-01-22] MEDS: ASPIRIN 325 MG TAB PO SCH (11:11)
[2022-01-22] MEDS: levETIRAcetam 500 MG/5 ML ORAL LIQD PO SCH (11:12)
[2022-01-22] MEDS: carvediloL 12.5 MG TAB PO SCH (11:12)
--- NOTE | 2022-01-22 12:52 | Discharge Summary ---
Providers - Providers Date of Admission: 01/18/22 16:44 Date of discharge: 01/22/22 Attending physician: CHRIS ROLDAN 01/18/22 16:44 Consult to Case Management [CONS] Routine Services Needed at Discharge: Other Notified:: in AM Additional Physician Instructions: Please send out for SNF Placement Occupational Therapy Evaluate and Treat [CONS] Routine Comment: Reason For Exam: Neuro deficits Physical Therapy Evaluation and Treat [CONS] Routine Comment: Reason For Exam: Neuro deficits 01/18/22 16:46 Speech Therapy Evaluation and Treat [CONS] Routine Reason For Exam: swallow eval 01/19/22 12:46 Consult to Physician [CONS] Routine Comment: Consulting Provider: LOREN FISHER Physician Instructions: Reason For Exam: acute CVA 01/19/22 18:05 Consult to Dietitian/Nutrition [CONS] Routine Physician Instructions: Assess nutrtn needs, initiate, modify, manage TF Reason For Exam: Reason for Consult: Write/Manage Tube Feeding Reason for Consult: Write/Manage Tube Feeding Primary care physician: GELACIO JOYA Hospitalization Condition: Stable Hospital course: --New onset seizure -- Postictal state, POA, resolved Continue Kericki, ordered EEG and MRI of the brain Consulted neurology, will follow recommendation --Possible acute CVA (cerebral vascular accident) -ruled out --History of old CVA with right-sided deficit and chronic vascular changes CT head w/o contrast: 1. No acute intracranial abnormality. 2. Multifocal chronic ischemic changes including a large chronic left MCA distribution infarct with associated encephalomalacia. CTA head/neck: There is irregular atherosclerotic plaque involving proximal left ICA with mild, 20% stenosis by NASCET criteria. There is mild plaque involving proximal right ICA without significant stenosis. There is moderate right and mild left narrowing of the origins of the vertebral arteries as described. Echocardiogram: Preserved EF Carotid doppler <50% stenosis b/l Continue stroke protocol with neuro check, seizure precaution, aspiration precaution, fall precautions, physical therapy consulted, Occupational Therapy consulted, s Neurology and speech therapy consult placed, Ordered lipid panel, Continue statin therapy, antiplatelet therapy, -- Hemiparesis of right dominant side due to old cerebral infarction Physical therapy consulted. -- Dysarthria due to acute cerebellar cerebrovascular accident (CVA) Speech therapy consulted -- Dysphagia as late effect of stroke Speech therapy consulted, patient has PEG tube in place, ordered diet -- Vascular dementia, suspected Verbal prompt, verbal redirection, benzodiazepine therapy as clinically indicated. -- DVT prophylaxis SCDs bilateral lower extremities while in bed Disposition: 06 HOME HEALTH CARE SERVICE Core Measure Documentation - Palliative Care Palliative Care/ Comfort Measures: Not Applicable - Core Measures Any of the following diagnoses?: none Exam - Constitutional Vitals: Temp Pulse Resp BP Pulse Ox 98.2 F 56 L 18 160/91 96 01/20/22 20:13 01/22/22 05:58 01/22/22 00:00 01/22/22 05:58 01/22/22 00:00 General appearance: Present: no acute distress, well-nourished - EENT Eyes: Present: PERRL, EOM intact - Neck Neck: Present: supple, normal ROM - Respiratory Respiratory effort: normal Respiratory: bilateral: diminished, negative: rales, rhonchi, wheezing - Cardiovascular Rhythm: regular Heart Sounds: Present: S1 & S2 - Extremities Extremities: no ischemia, abnormal (Chronic changes) - Abdominal General gastrointestinal: Present: soft, non-tender, non-distended, normal bowel sounds, other (PEG tube in place) - Integumentary Integumentary: Present: clear, warm - Musculoskeletal Musculoskeletal: generalized weakness, other (Hemiparesis) - Psychiatric Psychiatric: other (Noncommunicative) - Neurologic Neurologic: moves all extremities (Acute CVA with residual hemiparesis) Plan Activity: advance as tolerated, fall precautions Diet: other (Pured diet, PEG feeds per protocol) Additional Instructions: Fall precautions. Aspiration precautions. If you have worsening symptoms contact MD or go to the nearest emergency room as needed. Tube feeding[PEG feeds] per protocol. Advised to see private MD in 5 to 7 days. All the consultants at [facility] per schedule Follow up with: GELACIO JOYA MD [Primary Care Provider] - 7 Days GABBY SYLVESTER MD [Staff Physician] - 7 Days Prescriptions: carvediloL [Coreg] 12.5 mg PO BID #60 tablet bisacodyL [Dulcolax suppos] 10 mg ID QDAY PRN #20 supp.rect PRN Reason: Constipation levETIRAcetam [Keppra] 500 mg PO BID 30 Days #2 bottle Insulin Glargine [Lantus VIAL] 20 units SUB-Q 0800 30 Days #2 vial
[2022-01-22 17:57] VITALS: BP 148/84
== END 2022-01-22 18:07 | disposition home or self-care (01) | DRG 101 ==
LOC: ED 15:06 → 3A 16:44 → UNDODISIN 23:59
PROVIDERS: ADMIT Internal Medicine; ATTEND Internal Medicine
DX: G40.909 Epilepsy, unspecified, not intractable, without status epilepticus (principal); I69.351 Hemiplegia and hemiparesis following cerebral infarction affecting right dominant side; I69.391 Dysphagia following cerebral infarction; I67.2 Cerebral atherosclerosis; F01.50 Vascular dementia, unspecified severity, without behavioral disturbance, psychotic disturbance, mood disturbance, and anxiety; I48.0 Paroxysmal atrial fibrillation; Z82.49 Family history of ischemic heart disease and other diseases of the circulatory system
CPT/HCPCS: 36415; 70450; 70496; 70498; 70551; 71045; 80048; 80053; 80061; 80307; 81001; 82550; 82553; 82962; 84484; 85007; 85025; 85610; 85670; 85730; 93005; 93306; 93880; 94640; G0378; C8929; J1815; J1953; Q9967